=== PATIENT | female | born 1970 | race Caucasian/White ===

== ENCOUNTER 2016-06-24 11:18 | Emergency (ER) | payer BC ==
[~2016-06-24] VITALS: Ht 157.5 cm; Wt 62.1 kg
[~2016-06-24 11:18] MED LIST: ASPIR 8181 M1 PO; LORTAB 5-325 M1 EACH PO; MOBIC7.5 MG PO; MOTRIN600 MG PO; PRAVASTATIN SOD40 MG PO; SKELAXIN800 MG PO; VENTOLIN HFA18 GM IH
[2016-06-24 12:25] LABS: CHLORIDE 106 mEq/L (99-109); POTASSIUM 4.1 mEq/L (3.7-5.4); SODIUM 140 mEq/L (136-147)
[2016-06-24 12:26] LABS: GLUCOSE 75 mg/dL (70-99)
[2016-06-24 12:28] LABS: ANION GAP 11 MEQ/L (2-14)
[2016-06-24 12:30] LABS: GFR ESTIMATE (CALCULATED) > 59 mL/min/
[2016-06-24 12:31] LABS: UREA NITROGEN (BUN) 7 mg/dL (9-23)
[2016-06-24 12:35] LABS: TROP-I INTERPRETATION NEGATIVE; TROPONIN-I < 0.01 ng/mL (0.0-0.30)
[2016-06-24 14:32] LABS: D-DIMER ELISA 0.52 mg/L FEU (< 0.57)
[2016-06-24 14:41] LABS: HEMATOCRIT 41.9 % (36.0-46.0); MCH 31.9 PG (29.0-34.0); MCHC 34.4 G/DL (30.0-36.0); MCV 92.9 FL (83-99); MEAN PLAT.VOLUME 11.4 uM^3 (9.5-12.4); PLATELET COUNT 299 K/uL (156-360); RBC DIS.WIDTH-CV 13.3 % (11.8-14.6); RBC DIS.WIDTH-SD 44.9 % (39-53); RED BLOOD COUNT 4.51 M/uL (3.80-5.20); WHITE BLOOD COUNT 7.4 K/uL (4.1-10.2)
[2016-06-24 14:56] LABS: TROP-I INTERPRETATION NEGATIVE; TROPONIN-I < 0.01 ng/mL (0.0-0.30)
[2016-06-24 18:32] VITALS: BP 115/73
== END 2016-06-24 18:34 | disposition home or self-care (01) ==
LOC: EME 11:18
PROVIDERS: Emergency Medicine
DX: R06.02 Shortness of breath (principal); R07.89 Other chest pain; N63 Unspecified lump in breast; R53.83 Other fatigue; E78.00 Pure hypercholesterolemia, unspecified; J45.909 Unspecified asthma, uncomplicated; Z79.82 Long term (current) use of aspirin; F17.200 Nicotine dependence, unspecified, uncomplicated; Z71.6 Tobacco abuse counseling; Z91.14 Patient's other noncompliance with medication regimen
CPT/HCPCS: 71020; 71275; 80048; 83880; 84484; 85027; 85379; 93005; 99281; 99285; J1100; J1200